=== PATIENT | female | born 1970 | race Caucasian/White ===

== ENCOUNTER 2023-12-22 17:09 | Emergency (ER) | payer OTHER ==
[~2023-12-22] VITALS: Ht 165.1 cm; Wt 69.0 kg
[2023-12-22 18:29] LABS: BASOPHILS ABSOLUTE AUTO 0.05 K/mm3 (0.00-0.23); BASOPHILS PERCENT AUTO 1 % (0-2); EOSINOPHILS ABSOLUTE AUTO 0.26 K/mm3 (0.00-0.68); EOSINOPHILS PERCENT AUTO 4 % (0-6); Hematocrit 39.4 % (33.0-51.0); Hemoglobin 13.2 g/dL (11.5-16.0); IMMATURE GRAN ABSOLUTE AUTO 0.01 K/mm3 (0.00-0.10); IMMATURE GRAN PERCENT AUTO 0 % (0-1); LYMPHOCYTES ABSOLUTE AUTO 2.38 K/mm3 (0.84-5.20); LYMPHOCYTES PERCENT AUTO 33 % (21-46); MONOCYTES PERCENT AUTO 10 % (4-13); Mean Corpuscular HGB 28.8 pg (26.0-34.0); Mean Corpuscular HGB Conc 33.5 g/dL (31.5-36.5); Mean Corpuscular Volume 86 fL (80-100); Mean Platelet Volume 9.7 fL (9.1-12.4); NEUTROPHILS ABSOLUTE AUTO 3.81 K/mm3 (1.96-9.15); NEUTROPHILS PERCENT AUTO 53 % (41-73); Platelet Count 411 K/mm3 (150-400); RDW Coefficient Variation 13.5 % (11.7-14.2); RDW Standard Deviation 42.1 fL (35.1-46.3); Red Blood Cell Count 4.58 M/mm3 (3.80-5.20); White Blood Cell Count 7.21 K/mm3 (4.00-11.30)
[2023-12-22 18:41] LABS: Albumin, Blood 4.1 g/dL (3.4-5.0); Bilirubin, Total 0.3 mg/dL (0.1-1.0); Bun/Creatinine Ratio 34.5 (12.0-20.0); Calcium, Blood 9.6 mg/dL (8.5-10.1); Creatinine, Blood 0.84 mg/dL (0.40-1.00); Globulin, Blood 4.1 g/dL (2.2-4.0); Potassium, Blood 3.8 mmol/L (3.5-5.5); Total Protein, Blood 8.2 g/dL (6.4-8.2)
[2023-12-22] MEDS ORDERED: LOSA50 PO (19:49)
[2023-12-22 20:45] VITALS: BP 109/73
== END 2023-12-22 20:54 | disposition home or self-care (01) ==
LOC: ER 17:09
PROVIDERS: Student in an Organized Health Care Education/Training Program
DX: R00.2 Palpitations (principal); I10 Essential (primary) hypertension; Z88.8 Allergy status to other drugs, medicaments and biological substances; Z79.899 Other long term (current) drug therapy; F17.290 Nicotine dependence, other tobacco product, uncomplicated
CPT/HCPCS: 71046; 80053; 84484; 85025; 99285-25

== ENCOUNTER 2024-06-13 17:11 | Emergency (ER) | payer OTHER ==
[~2024-06-13] VITALS: Ht 165.1 cm; Wt 65.8 kg
[~2024-06-13 17:11] MED LIST: LOSA50 PO
[2024-06-13 17:15] VITALS: BP 164/116
[2024-06-13] MEDS ORDERED: HYDHCL25 PO (17:54)
[2024-06-13] MEDS ORDERED: OLAN5 PO (17:54)
[2024-06-13] MEDS ORDERED: LOSA50 PO (17:54)
== END 2024-06-13 18:12 | disposition home or self-care (01) ==
LOC: ER 17:11
DX: G47.00 Insomnia, unspecified (principal); F41.9 Anxiety disorder, unspecified; F15.10 Other stimulant abuse, uncomplicated; Z79.899 Other long term (current) drug therapy; Z88.8 Allergy status to other drugs, medicaments and biological substances
CPT/HCPCS: 99282